=== PATIENT | male | born 1985 | race Caucasian/White ===

== ENCOUNTER 2017-07-14 20:00 | Emergency (ER) | payer MEDICARE, OTHER ==
[2017-07-14 20:00] VITALS: BP 127/82; PULSE 73; RESP 16; TEMP 98.1; O2SAT 100
[~2017-07-14 20:00] MED LIST: FENO145T2 PO; PERP8TAB7 PO
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
[2017-07-14 22:27] LABS: AUTOMATED NEUTROPHIL # 2.4 TH/MM3 (1.8-7.7); BASOPHIL % 0.9 % (0.0-2.0); EOSINOPHIL # 0.1 TH/MM3 (0-0.4); EOSINOPHIL % 1.7 % (0.0-4.0); HEMATOCRIT 32.5 % (39.0-51.0); HEMO FLAGS DIFF FINAL; LYMPH % 33.6 % (9.0-44.0); LYMPHOCYTE # 1.6 TH/MM3 (1.0-4.8); MEAN CELL VOLUME 100.6 FL (80.0-100.0); MEAN CORPUSCULAR HEMOGLOBIN 33.4 PG (27.0-34.0); MEAN CORPUSCULAR HGB CONC 33.2 % (32.0-36.0); NEUT % 50.8 % (16.0-70.0); PLATELET COUNT 241 TH/MM3 (150-450); RED BLOOD COUNT 3.23 MIL/MM3 (4.50-5.90); RED CELL DISTRIBUTION WIDTH 15.6 % (11.6-17.2); WHITE BLOOD COUNT 4.8 TH/MM3 (4.0-11.0)
[2017-07-14 22:43] LABS: ANION GAP 6 MEQ/L (5-15); AST (GOT) 21 U/L (15-37); BICARBONATE 28.7 MEQ/L (21.0-32.0); BLOOD UREA NITROGEN 16 MG/DL (7-18); CHLORIDE 108 MEQ/L (98-107); GLOMERULAR FILTRATION RATE 53 ML/MIN (>89); POTASSIUM 3.3 MEQ/L (3.5-5.1); SODIUM (NA) 143 MEQ/L (136-145)
[2017-07-14 22:47] LABS: ALKALINE PHOSPHATASE 58 U/L (45-117); ALT (GPT) 29 U/L (12-78); TOTAL BILIRUBIN ADULT 0.4 MG/DL (0.2-1.0)
[2017-07-15] MEDS ORDERED: IBUPROFEN 600 MG TAB PO ONE (02:30)
--- NOTE | 2017-07-15 02:46 | PD ---
Data Data Last Documented VS Vital Signs Date Time Temp Pulse Resp B/P (MAP) Pulse Ox O2 Delivery O2 Flow Rate FiO2 07/14/17 20:00 98.1 73 16 127/82 (97) 100 Orders Orders Complete Blood Count With Diff (07/14/17 20:16) Comprehensive Metabolic Panel (07/14/17 20:16) Psych Screen (07/14/17 20:16) Drug Screen, Random Urine (07/14/17 20:16) Ibuprofen (Motrin) (07/15/17 02:30) Labs Laboratory Tests Test 07/14/17 21:41 07/14/17 22:47 White Blood Count 4.8 TH/MM3 Red Blood Count 3.23 MIL/MM3 Hemoglobin 10.8 GM/DL Hematocrit 32.5 % Mean Corpuscular Volume 100.6 FL Mean Corpuscular Hemoglobin 33.4 PG Mean Corpuscular Hemoglobin Concent 33.2 % Red Cell Distribution Width 15.6 % Platelet Count 241 TH/MM3 Mean Platelet Volume 7.4 FL Neutrophils (%) (Auto) 50.8 % Lymphocytes (%) (Auto) 33.6 % Monocytes (%) (Auto) 13.0 % Eosinophils (%) (Auto) 1.7 % Basophils (%) (Auto) 0.9 % Neutrophils # (Auto) 2.4 TH/MM3 Lymphocytes # (Auto) 1.6 TH/MM3 Monocytes # (Auto) 0.6 TH/MM3 Eosinophils # (Auto) 0.1 TH/MM3 Basophils # (Auto) 0.0 TH/MM3 CBC Comment DIFF FINAL Differential Comment Blood Urea Nitrogen 16 MG/DL Creatinine 1.52 MG/DL Random Glucose 105 MG/DL Total Protein 7.2 GM/DL Albumin 3.2 GM/DL Calcium Level 8.8 MG/DL Alkaline Phosphatase 58 U/L Aspartate Amino Transf (AST/SGOT) 21 U/L Alanine Aminotransferase (ALT/SGPT) 29 U/L Total Bilirubin 0.4 MG/DL Sodium Level 143 MEQ/L Potassium Level 3.3 MEQ/L Chloride Level 108 MEQ/L Carbon Dioxide Level 28.7 MEQ/L Anion Gap 6 MEQ/L Estimat Glomerular Filtration Rate 53 ML/MIN Urine Opiates Screen NEG Urine Barbiturates Screen NEG Urine Amphetamines Screen NEG Urine Benzodiazepines Screen NEG Urine Cocaine Screen NEG Urine Cannabinoids Screen NEG MDM Supervised Visit with TEMITOPE: Yes Narrative Course The history, exam, and medical decision-making in the associated mid-level provider note were completed with my assistance. I reviewed and agree with the findings presented. I attest that I had a [id number] encounter with the patient on the same day, and personally performed and documented my assessment and findings in the medical record. *My assessment and Findings: Patient Gamal acted for aggressive behavior. Labs are unremarkable Patient medically clear for psychiatric evaluation. Diagnosis Primary Impression: Medical clearance for psychiatric admission Scripts Unable to Obtain Active Prescriptions or Reported Meds Condition: Pranav Kendrick MD Jul 15, 2017 02:46
[2017-07-15 08:00] VITALS: BP 117/64; PULSE 72; RESP 14; TEMP 98; O2SAT 98
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
--- NOTE | 2017-07-15 11:19 | PD ---
Data Data Last Documented VS Vital Signs Date Time Temp Pulse Resp B/P (MAP) Pulse Ox O2 Delivery O2 Flow Rate FiO2 07/15/17 08:00 14 07/15/17 08:00 98.0 14 117/64 (81) 98 Room Air Orders Orders Complete Blood Count With Diff (07/14/17 20:16) Comprehensive Metabolic Panel (07/14/17 20:16) Psych Screen (07/14/17 20:16) Drug Screen, Random Urine (07/14/17 20:16) Ibuprofen (Motrin) (07/15/17 02:30) Diet Pediatric (07/15/17 Lunch) Labs Laboratory Tests Test 07/14/17 21:41 07/14/17 22:47 White Blood Count 4.8 TH/MM3 Red Blood Count 3.23 MIL/MM3 Hemoglobin 10.8 GM/DL Hematocrit 32.5 % Mean Corpuscular Volume 100.6 FL Mean Corpuscular Hemoglobin 33.4 PG Mean Corpuscular Hemoglobin Concent 33.2 % Red Cell Distribution Width 15.6 % Platelet Count 241 TH/MM3 Mean Platelet Volume 7.4 FL Neutrophils (%) (Auto) 50.8 % Lymphocytes (%) (Auto) 33.6 % Monocytes (%) (Auto) 13.0 % Eosinophils (%) (Auto) 1.7 % Basophils (%) (Auto) 0.9 % Neutrophils # (Auto) 2.4 TH/MM3 Lymphocytes # (Auto) 1.6 TH/MM3 Monocytes # (Auto) 0.6 TH/MM3 Eosinophils # (Auto) 0.1 TH/MM3 Basophils # (Auto) 0.0 TH/MM3 CBC Comment DIFF FINAL Differential Comment Blood Urea Nitrogen 16 MG/DL Creatinine 1.52 MG/DL Random Glucose 105 MG/DL Total Protein 7.2 GM/DL Albumin 3.2 GM/DL Calcium Level 8.8 MG/DL Alkaline Phosphatase 58 U/L Aspartate Amino Transf (AST/SGOT) 21 U/L Alanine Aminotransferase (ALT/SGPT) 29 U/L Total Bilirubin 0.4 MG/DL Sodium Level 143 MEQ/L Potassium Level 3.3 MEQ/L Chloride Level 108 MEQ/L Carbon Dioxide Level 28.7 MEQ/L Anion Gap 6 MEQ/L Estimat Glomerular Filtration Rate 53 ML/MIN Urine Opiates Screen NEG Urine Barbiturates Screen NEG Urine Amphetamines Screen NEG Urine Benzodiazepines Screen NEG Urine Cocaine Screen NEG Urine Cannabinoids Screen NEG MDM Supervised Visit with TEMITOPE: No Narrative Course I reviewed the case with the psychiatric screener and I have been asked to disposition the patient. Patient was Gamal acted inappropriately in the opinion of psychiatry. He's been here 15 hours and has been calm and cooperative His lab studies show nothing emergent. His vital signs are normal. He is medically stable for outpatient follow-up. Gamal act has been lifted. Diagnosis Primary Impression: Aggressive behavior Additional Impression: Down syndrome Additional Instruction: The patient was advised to follow up with their physician and return if they worsen. Med/Other Pt SpecificInfo: Other Scripts Unable to Obtain Active Prescriptions or Reported Meds Disposition: 01 DISCHARGE HOME Condition: Stable Tani Hahn MD Jul 15, 2017 11:19
== END 2017-07-15 13:59 | disposition home or self-care (01) ==
LOC: NEDAMB 20:00 → NEPD 07-15 13:59
DX: Z72.811 Adult antisocial behavior (principal); Q90.9 Down syndrome, unspecified
CPT/HCPCS: 80053; 80307; 85025; 99283

== ENCOUNTER 2017-08-22 15:29 | Inpatient (IN) | payer MEDICARE, OTHER ==
[~2017-08-22] VITALS: Ht 149.9 cm; Wt 67.6 kg
[2017-08-22 16:17] VITALS: BP 144/76; PULSE 81; RESP 16; TEMP 98; O2SAT 96
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
[2017-08-22 17:15] LABS: AUTOMATED NEUTROPHIL # 3.6 TH/MM3 (1.8-7.7); BASOPHIL # 0.1 TH/MM3 (0-0.2); EOSINOPHIL % 0.9 % (0.0-4.0); HEMATOCRIT 32.4 % (39.0-51.0); HEMO FLAGS DIFF FINAL; LYMPH % 22.7 % (9.0-44.0); LYMPHOCYTE # 1.2 TH/MM3 (1.0-4.8); MEAN CELL VOLUME 103.5 FL (80.0-100.0); MEAN CORPUSCULAR HEMOGLOBIN 33.5 PG (27.0-34.0); MEAN CORPUSCULAR HGB CONC 32.3 % (32.0-36.0); MONO % 7.2 % (0.0-8.0); NEUT % 68.2 % (16.0-70.0); PLATELET COUNT 264 TH/MM3 (150-450); RED BLOOD COUNT 3.13 MIL/MM3 (4.50-5.90); WHITE BLOOD COUNT 5.3 TH/MM3 (4.0-11.0)
[2017-08-22 17:35] LABS: ALT (GPT) 27 U/L (12-78); ANION GAP 7 MEQ/L (5-15); AST (GOT) 25 U/L (15-37); BICARBONATE 30.4 MEQ/L (21.0-32.0); BLOOD UREA NITROGEN 16 MG/DL (7-18); CHLORIDE 110 MEQ/L (98-107); GLOMERULAR FILTRATION RATE 49 ML/MIN (>89); SODIUM (NA) 147 MEQ/L (136-145)
[2017-08-22 17:37] LABS: ALKALINE PHOSPHATASE 54 U/L (45-117); TOTAL BILIRUBIN ADULT 0.4 MG/DL (0.2-1.0)
[2017-08-22 17:42] LABS: ALCOHOL LESS THAN 3 MG/DL (0-5)
[2017-08-22] MEDS ORDERED: LORazepam 2 MG/ML VIAL IM ONE (18:30)
[2017-08-22 18:34] VITALS: BP 115/73; PULSE 84; RESP 18; TEMP 98.2; O2SAT 98
[2017-08-22] MEDS ORDERED: PERP2TAB18 PO ×2 (19:26)
[2017-08-22] MEDS ORDERED: FENO160T PO (19:31)
[2017-08-22] MEDS ORDERED: ALBU.5I NEB (19:31)
[2017-08-22] MEDS ORDERED: CLON1 PO (19:31)
[2017-08-22] MEDS ORDERED: FOLI800T PO (19:31)
[2017-08-22] MEDS ORDERED: TRAZ1TAB14 PO (19:31)
[2017-08-22] MEDS ORDERED: CLON.5 PO (19:31)
[2017-08-22] MEDS ORDERED: VITA10002 PO (19:31)
[2017-08-22] MEDS ORDERED: OXYGEN (19:31)
[2017-08-22] MEDS: clonazePAM 0.5 MG TAB PO SCH (19:45)
[2017-08-22] MEDS ORDERED: PERPHENAZINE 4 MG PO SCH (19:45)
[2017-08-22] MEDS ORDERED: PERPHENAZINE 8 MG PO SCH (21:00)
[2017-08-22 21:31] VITALS: BP 124/63; PULSE 95; RESP 16; TEMP 98.2; O2SAT 97
[2017-08-22] MEDS: FENOFIBRATE 145 MG TAB PO SCH (21:45)
[2017-08-22 22:16] VITALS: O2SAT 94
[2017-08-22] MEDS: RESP: ALBUTEROL CONC 2.5 MG/0.5 ML NEB NEB SCH (22:16)
[2017-08-23] MEDS: traZODone HCL 100 MG TAB PO SCH ×2 (00:44→20:35)
[2017-08-23] MEDS: clonazePAM 1 MG TAB PO SCH ×2 (00:44→20:35)
[2017-08-23] MEDS: RESP: ALBUTEROL CONC 2.5 MG/0.5 ML NEB NEB SCH ×4 (04:24→21:23)
[2017-08-23 05:50] VITALS: BP 101/52; PULSE 89; RESP 20; TEMP 97.1; O2SAT 90
[2017-08-23] MEDS: clonazePAM 0.5 MG TAB PO SCH (08:23)
[2017-08-23] MEDS: PERPHENAZINE 4 MG TAB PO SCH ×2 (08:23→20:35)
[2017-08-23 10:27] VITALS: O2SAT 99
[2017-08-23] MEDS ORDERED: PERPHENAZINE 4 MG TAB PO SCH (12:00)
--- NOTE | 2017-08-23 12:58 | PD.TTN ---
Patient Problems 1. Discharge planning 2. Medication compliance 3. Knowledge deficit 4. Lack of coping skills Progress Toward Goals Provider Present: Dr. Asim Corea, Dr. Noe Loco Provider Input: Per Dr. Loco, patient is a new admission, treatment plan, and medication will be discussed with patient or with his POA to determine his needs Psychiatric Counselors Present: DINO Suarez Psych Therapist Input: Patient will participate with creating his treatment plan and goals. Patient will be encouraged with meals, medication and activities Group Spec/RT/OT/BURK Present: BHARGAVI Delgadillo Group Spec/RT/OT/BURK Input: Patient is a new admission, he will be encouraged with group activities Documentation Scribe: DINO Suarez Sandra LMHC Aug 23, 2017 12:58
[2017-08-23 14:29] LABS: ANION GAP 9 MEQ/L (5-15); BICARBONATE 23.9 MEQ/L (21.0-32.0); BLOOD UREA NITROGEN 17 MG/DL (7-18); CHLORIDE 107 MEQ/L (98-107); GLOMERULAR FILTRATION RATE 67 ML/MIN (>89); POTASSIUM 3.9 MEQ/L (3.5-5.1); SODIUM (NA) 140 MEQ/L (136-145)
[2017-08-23 14:32] LABS: HDL CHOLESTEROL 7.4 MG/DL (40.0-60.0); LDL CHOLESTEROL 45 MG/DL (0-99)
[2017-08-23 16:13] LABS: HEMOGLOBIN A1a 1.1 %; HEMOGLOBIN A1b 0.5 %; HEMOGLOBIN Ao 88.9 %; HEMOGLOBIN F 1.1 %; HEMOGLOBIN LA1C 1.6 %; HEMOGLOBIN P3 2.8 %
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
[2017-08-23 18:00] VITALS: BP 140/71; PULSE 84; RESP 18; TEMP 98.6; O2SAT 98
[2017-08-23] MEDS ORDERED: OLANZapine IM 10 MG VIAL IM ONE ×2 (18:48→19:00)
[2017-08-23] MEDS: FENOFIBRATE 145 MG TAB PO SCH (20:35)
[2017-08-23 21:26] VITALS: O2SAT 100
[2017-08-24 06:27] VITALS: BP 90/50; PULSE 70; RESP 16; TEMP 97.9; O2SAT 95
[2017-08-24] MEDS: clonazePAM 0.5 MG TAB PO SCH (08:51)
[2017-08-24] MEDS: PERPHENAZINE 4 MG TAB PO SCH ×3 (08:51→21:26)
[2017-08-24] MEDS: RESP: ALBUTEROL CONC 2.5 MG/0.5 ML NEB NEB SCH ×3 (10:47→21:35)
[2017-08-24 10:50] VITALS: O2SAT 98
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
[2017-08-24 18:00] VITALS: BP 137/69; PULSE 84; RESP 17; TEMP 98.4; O2SAT 96
--- NOTE | 2017-08-24 18:12 | HHI.PYPN ---
Subjective Remarks Patient seen follow, chart review. Patient with limited interaction as patient has insulated services but able to answer concretely to questions. Patient reports feeling "good", denies any physical pain at this time. Patient noted at times to have low frustration tolerance due to and having his requests fulfilled. Patient noted to have some frustration but verbally redirectible and has not had any aggressive behavior since admission. Review of Systems Except as stated in HPI: all other systems reviewed are Neg Mental Status Examination Appearance: Appropriate Consciousness: Alert Orientation: Person, Place Motor Activity: Normal gait Speech: Speech impediment Language: Adequate Fund of Knowledge: Poor Attention and Concentration: Inadequate Memory: Impaired Mood: Appropriate Affect: Blunt Thought Process & Associations: Other (concrete) Thought Content: Appropriate Hallucination Type: None Delusion Type: None Suicidal Ideation: No Suicidal Plan: No Suicidal Intention: No Homicidal Ideation: No Homicidal Plan: No Homicidal Intention: No Insight: Poor Judgment: Poor Results Vitals/IOs Vital Signs Date Time Temp Pulse Resp B/P (MAP) Pulse Ox O2 Delivery O2 Flow Rate FiO2 08/24/17 10:50 98 21 08/24/17 06:27 97.9 70 16 90/50 (63) 08/23/17 07:53 Room Air 08/23/17 00:23 2.00 Intake and Output 08/24/17 08/24/17 08/25/17 08:00 16:00 00:00 Intake Total 840 ml Balance 840 ml Assessment & Plan Problem List: (1) Intermittent explosive disorder in adult ICD Codes: F63.81 - Intermittent explosive disorder (2) Down syndrome ICD Codes: Q90.9 - Down syndrome, unspecified Status: Acute Assessment & Plan Patient at this time has not had any behavioral dyscontrol since admission, had responded well to treatment. Although patient has had some verbal outbursts but is easily redirectable. Continue current treatment for now. Discharge planning in progress Justification for Cont. Inpt. At risk for further decompensation if it lower level of care Discharge Planning Patient to return back to his residence once psychiatrically stable. Samy Loco MD Aug 24, 2017 18:12
[2017-08-24] MEDS: FENOFIBRATE 145 MG TAB PO SCH (21:26)
[2017-08-24] MEDS: clonazePAM 1 MG TAB PO SCH (21:26)
[2017-08-24] MEDS: traZODone HCL 100 MG TAB PO SCH (21:26)
[2017-08-24 21:35] VITALS: O2SAT 97
[2017-08-25] MEDS: RESP: ALBUTEROL CONC 2.5 MG/0.5 ML NEB NEB SCH ×3 (04:00→15:47)
[2017-08-25 06:26] VITALS: BP 98/55; PULSE 83; RESP 16; TEMP 97.1; O2SAT 94
[2017-08-25] MEDS: PERPHENAZINE 4 MG TAB PO SCH ×2 (09:28→12:00)
[2017-08-25] MEDS: clonazePAM 0.5 MG TAB PO SCH (09:28)
[2017-08-25] MEDS ORDERED: CLON.5 PO (10:25)
[2017-08-25] MEDS ORDERED: TRAZ100T10 PO (10:25)
[2017-08-25] MEDS ORDERED: PERP4TAB24 PO (10:25)
[2017-08-25] MEDS ORDERED: FENO145T2 PO (10:25)
[2017-08-25] MEDS ORDERED: PERP8TAB16 PO (10:25)
[2017-08-25] MEDS ORDERED: CLON1 PO (10:25)
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
[2017-08-25 15:47] VITALS: O2SAT 99
== END 2017-08-25 16:00 | disposition home or self-care (01) | DRG 883 ==
LOC: NEDAMB 15:29 → NEDA 20:48 → H4EA 21:10
PROVIDERS: ADMIT Student in an Organized Health Care Education/Training Program; ATTEND Student in an Organized Health Care Education/Training Program
DX: F63.81 Intermittent explosive disorder (principal); Q90.9 Down syndrome, unspecified; F41.8 Other specified anxiety disorders; F43.20 Adjustment disorder, unspecified; Z79.899 Other long term (current) drug therapy
CPT/HCPCS: 80048; 80053; 80061; 80307; 83036; 85025; 94640; 94664; 96372; J2060; J7611; Q0175